=== PATIENT | male | born 1970 | race Caucasian/White ===

== ENCOUNTER 2019-03-11 02:17 | Inpatient (IN) | payer OTHER ==
[~2019-03-11] VITALS: Ht 188 cm; Wt 75.8 kg
[2019-03-11] MEDS ORDERED: MORPHINE SULFATE 4 MG/ML, 1ML ONE (02:50)
[2019-03-11] MEDS ORDERED: ONDANSETRON 2MG/ML, 2ML ONE (02:50)
[2019-03-11] MEDS ORDERED: ONDANSETRON 2MG/ML, 2ML IVPush ONE (03:00)
[2019-03-11] MEDS ORDERED: MORPHINE SULFATE 4 MG/ML, 1ML IVPush PRN (03:00)
[2019-03-11] MEDS ORDERED: SODIUM CHLORIDE FLUSH 10ML SYR IVF ONE (03:00)
[2019-03-11 03:05] LABS: MEAN CORPUSCULAR HGB CONC 32.3 g/dL (33.2-36.2); MEAN CORPUSCULAR VOLUME 89.9 fL (81-97); MEAN PLATELET VOLUME 8.1 fL (7.4-10.4); PLATELET COUNT 199 x10^3/uL (130-400); RED BLOOD COUNT 5.44 x10^6/uL (4.38-5.82); RED CELL DISTRIBUTION WIDTH 13.6 % (9.4-14.8)
--- NOTE | 2019-03-11 03:07 | NUR ---
pt here for chest pain that radiates to back. pt says he woke up with it approx 16 hrs ago. HR elevated. piv placed. pt medicated for pain. pt unable to urinate at this time. pt given urinal for ua. call light in reach
--- NOTE | 2019-03-11 03:09 | NUR ---
PT PLACED ON 3 L NC. RA SATS 83. PTS SATS AFTER O2 93
[2019-03-11 03:15] LABS: ALANINE AMINOTRANSFERASE 14 U/L (12-78); ALBUMIN 2.9 g/dL (3.4-5.0); ANION GAP 14 mmol/L (5-15); CALCIUM 7.8 mg/dL (8.5-10.1); CHLORIDE 99 mmol/L (98-107); CREATININE 2.66 mg/dL (0.7-1.3)
[2019-03-11 03:16] LABS: D-DIMER 1.55 ug/mlFEU (0.00-0.52); INTERNATIONAL NORMALIZED RATIO 1.22 (0.93-1.1); PROTHROMBIN TIME 12.7 Seconds (9.6-11.5)
[2019-03-11 03:17] LABS: ALKALINE PHOSPHATASE 69 U/L (45-117); BILIRUBIN,TOTAL 0.6 mg/dL (0.2-1.0); TOTAL PROTEIN 6.6 g/dL (6.4-8.2)
[2019-03-11] MEDS ORDERED: SODIUM CHLORIDE 0.9% 1,000ML IVBOLUS ONE ×2 (03:30→04:00)
[2019-03-11 03:36] LABS: MD YES
[2019-03-11 03:42] LABS: BANDS%(MANUAL) 19 % (0-7); LYMPH#(MANUAL) 1.51 x10^3/uL (1-3.4); LYMPHS% (MANUAL) 13 % (22-44); METAMYELOCYTES# (MANUAL) 1.28 x10^3/uL (0-0); METAMYELOCYTES% (MANUAL) 11 % (0-1); MONOS#(MANUAL) 0.12 x10^3/uL (0.3-2.7); MONOS% (MANUAL) 1 % (2-9); REACTIVE LYMPHS # (MANUAL) 0.46 x10^3/uL (0-0); REACTIVE LYMPHS % (MANUAL) 4 % (0-0); SEG#(MANUAL) 5.92 x10^3/uL (1.8-6.8); SEGS% (MANUAL) 51 % (42-75)
--- NOTE | 2019-03-11 03:44 | NUR ---
PT TO CT
[2019-03-11 03:52] LABS: OTHER CELLS # (MANUAL) 0.12 x10^3/uL (0-0); OTHER CELLS % (MANUAL) 1 % (0-0)
[2019-03-11 03:53] LABS: <PLATELET ESTIMATE> ADEQUATE; <RBC MORPHOLOGY> NORMAL
[2019-03-11 03:54] LABS: LARGE PLATELETS 1+
--- NOTE | 2019-03-11 03:56 | NUR ---
PT BACK FROM CT. 2ND L RUNNING. PT RESTING WITH NO NEEDS AT THIS TIME. CALL LIGHT IN REACH
[2019-03-11] MEDS ORDERED: OMNIPAQUE 350 MG/ML, 100ML BOTTLE ONE (03:57)
[2019-03-11] MEDS ORDERED: MEROPENEM 0.5 GM in SODIUM CHLORIDE 0.9% 100 ML IV ONE (04:30)
[2019-03-11] MEDS ORDERED: LINEZOLID PMX 600MG/300ML 300 ML IV ONE (04:30)
[2019-03-11] MEDS ORDERED: SODIUM CHLORIDE 0.9% 1,000 ML IV ONE (04:30)
[2019-03-11] MEDS ORDERED: MEROPENEM 500 MG in SODIUM CHLORIDE 0.9% 100 ML IV ONE (04:35)
--- NOTE | 2019-03-11 04:50 | NUR ---
PT SLEEPING. HR IMPROVED WITH FLUIDS. WILL START ABX AFTER BLOOD CULTURES ARE DRAWN. PT SLEEPING IN NAD. CALL LIGHT IN REACH
--- NOTE | 2019-03-11 05:10 | NUR ---
REPORT OF PT FROM OLIVA SUTTON AND ASSUMING CARE OF PT AT THIS TIME. LAB AT FOR BC X 2
--- NOTE | 2019-03-11 05:27 | NUR ---
PT MOVED FROM ROOM 3 TO TRAUMA 4. PT IS AWAKE AND CONSENTS TO PLACEMENT OF CENTRAL LINE. CENTRAL LINE CART MOVED INTO ROOM. 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 VSS AT THIS TIME. IV ABX AND FLUIDS STARTED IN TRAUMA BAY. HOSPITALIST AND DR. CARO AT BS WITH PT AT THIS TIME.
[2019-03-11] MEDS: SODIUM CHLORIDE 0.9% 1,000 ML IV SCH ×3 (05:37→20:58)
[2019-03-11] MEDS ORDERED: NOREPINEPHRINE 4 MG in SODIUM CHLORIDE 0.9% 246 ML IV PRN (05:37)
--- NOTE | 2019-03-11 05:49 | NUR ---
SUCCESSFUL INSERTION OF CENTRAL LINE. PT TOLERATED PROCEDURE WELL. VSS AND UPDATED IN EMR.
[2019-03-11] MEDS ORDERED: PHARMACY MAY ADJ FOR RENAL FX MC PRN ×2 (06:00)
[2019-03-11] MEDS ORDERED: VANCOMYCIN PER PHARMACY MC SCH (06:00)
[2019-03-11] MEDS ORDERED: SODIUM CHLORIDE 0.9%, 500ML IVBOLUS PRN (06:00)
[2019-03-11] MEDS ORDERED: ONDANSETRON 2MG/ML, 2ML IVPB PRN (06:00)
[2019-03-11] MEDS: HEPARIN 5,000 UNITS/ML, 1ML SQ SCH ×3 (06:00→23:13)
[2019-03-11] MEDS ORDERED: MORPHINE SULFATE 4 MG/ML, 1ML IV PRN ×2 (06:00→10:30)
[2019-03-11] MEDS ORDERED: ACETAMINOPHEN 650 MG/20.3 ML UDC PO PRN (06:00)
[2019-03-11] MEDS ORDERED: CEFTRIAXONE 2 GM in SODIUM CHLORIDE 0.9% 50 ML IVPB SCH (06:00)
--- NOTE | 2019-03-11 06:18 | NUR ---
PT ASLEEP IN [facility] AT THIS TIME; [place]. PT ON ALL MONITORS. MEDICATIONS GOING PER DEC.
[2019-03-11 06:33] LABS: CREATINE KINASE, TOTAL 57 U/L (39-308); TROPONIN I < 0.015 ng/mL (0.000-0.045)
[2019-03-11] MEDS ORDERED: HEPARIN 5,000 UNITS/ML, 1ML ONE (06:35)
[2019-03-11] MEDS ORDERED: CEFTRIAXONE PMX 2GM/50ML 50 ML ONE (06:36)
--- NOTE | 2019-03-11 06:48 | NUR ---
PER DR PROCTOR, PLACEMENT OF CVC CONFIRMED ON XRAY AND LINE OKAYED FOR USE. PT MEDICATED PER DEC.
--- NOTE | 2019-03-11 06:59 | NUR ---
I AM ASSUMING CARE OF THIS PT FROM [facility] (OLIVA) AT THIS TIME. SBAR REPORT WAS EXCHANGED AT THE BEDSIDE.
[2019-03-11] MEDS: AZITHROMYCIN 500 MG in SODIUM CHLORIDE 0.9% 250 ML IVPB SCH (07:23)
--- NOTE | 2019-03-11 07:42 | NUR ---
PT STOOD AT THE BEDSIDE W NO ASSIST AND URINATED. SAMPLE COLLECTED AND SENT TO THE LAB FOR ANALYSIS. IS AWARE OF SAMPLE, AND WE ARE NOT PLACING A LARA CATHETER AT THIS TIME.
--- NOTE | 2019-03-11 07:58 | NUR ---
[employer] MACHINE HELPER IS AT THE BEDSIDE FOR CONSULT. MYSELF, PT, AND MD ARE AGREEABLE TO DOWNGRADE ADMISSION TO [facility]. VS ARE STABLE AND WDL. I WILL CONTINUE TO MONITOR AND TREAT ORERED, WELL PRN WHILE AWAITING A ROOM ASSIGNMENT FOR ADMISSION.
[2019-03-11 07:59] LABS: MICROSCOPIC NOT IND
[2019-03-11 08:07] LABS: CULTURE INDICATED? NO
[2019-03-11] MEDS ORDERED: FAMOTIDINE 20 MG/2 ML IV SCH (09:00)
--- NOTE | 2019-03-11 09:02 | NUR ---
[facility]BAL SBAR EXCHANGED W OMER (RN) ON THE FLOOR FOR ADMISSION. WE WILL BEGIN TO PREPARE FOR TRANSPORT AT THIS TIME.
[2019-03-11] MEDS ORDERED: FAMOTIDINE 20 MG/2 ML ONE (09:07)
[2019-03-11] MEDS ORDERED: VANCOMYCIN 1,500 MG in SODIUM CHLORIDE 0.9% 250 ML IV SCH (10:30)
[2019-03-11] MEDS ORDERED: PHARMACOKINETIC MONITORING MC PRN ×2 (10:30→18:00)
[2019-03-11 13:17] LABS: AMPHETAMINE SCREEN, URINE Positive (Negative); BARBITURATE SCREEN, URINE Negative (Negative); BENZODIAZEPINE SCREEN, URINE Negative (Negative); CANNABINOID SCREEN, URINE Negative (Negative); CHLORIDE,URINE RANDOM 50 mmol/L; COCAINE SCREEN, URINE Negative (Negative); METHADONE SCREEN, URINE Negative (Negative); OPIATE SCREEN, URINE Positive (Negative); POTASSIUM,URINE RANDOM 79 mmol/L; SODIUM,URINE RANDOM 22 mmol/L
[2019-03-11 13:52] VITALS: BP 100/67
[2019-03-11] MEDS ORDERED: VANCOMYCIN PER PHARMACY MC PRN (18:00)
[2019-03-11] MEDS ORDERED: PHARMACOKINETIC CONSULTATION MC ONE (18:00)
[2019-03-11 19:40] VITALS: BP 107/67
[2019-03-11] MEDS ORDERED: VANCOMYCIN 1,500 MG in SODIUM CHLORIDE 0.9% 250 ML IV ONE (20:00)
[2019-03-12 00:14] VITALS: BP 95/59
[2019-03-12] MEDS: SODIUM CHLORIDE 0.9% 1,000 ML IV SCH ×3 (05:00→22:31)
[2019-03-12] MEDS: CEFTRIAXONE PMX 2GM/50ML 50 ML IVPB SCH (05:00)
[2019-03-12 05:04] LABS: MEAN CORPUSCULAR HEMOGLOBIN 29.1 pg (27.5-34.5); MEAN CORPUSCULAR HGB CONC 32.6 g/dL (33.2-36.2); MEAN CORPUSCULAR VOLUME 89.3 fL (81-97); PLATELET COUNT 189 x10^3/uL (130-400); RED BLOOD COUNT 4.23 x10^6/uL (4.38-5.82); RED CELL DISTRIBUTION WIDTH 13.5 % (9.4-14.8)
[2019-03-12 05:14] LABS: ALANINE AMINOTRANSFERASE 15 U/L (12-78); ANION GAP 4 mmol/L (5-15); CALCIUM 7.2 mg/dL (8.5-10.1); CHLORIDE 108 mmol/L (98-107)
[2019-03-12 05:17] LABS: ALKALINE PHOSPHATASE 62 U/L (45-117); BILIRUBIN,TOTAL 0.3 mg/dL (0.2-1.0); TOTAL PROTEIN 5.1 g/dL (6.4-8.2)
[2019-03-12 05:41] LABS: MD YES
[2019-03-12 05:46] LABS: <RBC MORPHOLOGY> NORMAL; BAND#(MANUAL) 2.99 x10^3/uL; BANDS%(MANUAL) 29 % (0-7); EOS#(MANUAL) 0.21 x10^3/uL (0.0-0.4); EOS% (MANUAL) 2 % (1-7); LYMPH#(MANUAL) 1.65 x10^3/uL (1-3.4); LYMPHS% (MANUAL) 16 % (22-44); MONOS% (MANUAL) 1 % (2-9); SEG#(MANUAL) 5.36 x10^3/uL (1.8-6.8); SEGS% (MANUAL) 52 % (42-75)
[2019-03-12 05:47] LABS: <PLATELET ESTIMATE> ADEQUATE
[2019-03-12 05:48] LABS: LARGE PLATELETS 1+
[2019-03-12] MEDS: HEPARIN 5,000 UNITS/ML, 1ML SQ SCH ×3 (06:30→22:31)
[2019-03-12] MEDS: AZITHROMYCIN 500 MG in SODIUM CHLORIDE 0.9% 250 ML IVPB SCH (06:31)
[2019-03-12 07:10] VITALS: BP 108/70
[2019-03-12] MEDS: VANCOMYCIN 1,500 MG in SODIUM CHLORIDE 0.9% 250 ML IV SCH ×2 (10:46→22:31)
[2019-03-12 13:01] VITALS: BP 131/86
[2019-03-12] MEDS: NICOTINE 7 MG/24 HR PATCH.TD24 TD SCH (16:15)
[2019-03-12 19:52] VITALS: BP 125/81
[2019-03-13 01:13] VITALS: BP 113/63
[2019-03-13 04:49] VITALS: BP 129/79
[2019-03-13] MEDS: CEFTRIAXONE PMX 2GM/50ML 50 ML IVPB SCH (05:04)
[2019-03-13] MEDS: SODIUM CHLORIDE 0.9% 1,000 ML IV SCH ×3 (05:04→23:06)
[2019-03-13] MEDS: HEPARIN 5,000 UNITS/ML, 1ML SQ SCH ×3 (05:04→23:06)
[2019-03-13] MEDS: AZITHROMYCIN 500 MG in SODIUM CHLORIDE 0.9% 250 ML IVPB SCH (06:16)
[2019-03-13 07:05] VITALS: BP 134/74
[2019-03-13] MEDS: VANCOMYCIN 1,500 MG in SODIUM CHLORIDE 0.9% 250 ML IV SCH (10:10)
[2019-03-13 11:24] VITALS: BP 123/78
[2019-03-13 12:26] LABS: MEAN CORPUSCULAR HEMOGLOBIN 28.4 pg (27.5-34.5); MEAN CORPUSCULAR HGB CONC 32.7 g/dL (33.2-36.2); MEAN CORPUSCULAR VOLUME 86.8 fL (81-97); MEAN PLATELET VOLUME 7.8 fL (7.4-10.4); PLATELET COUNT 219 x10^3/uL (130-400); RED BLOOD COUNT 4.41 x10^6/uL (4.38-5.82); RED CELL DISTRIBUTION WIDTH 13.8 % (9.4-14.8)
[2019-03-13 12:30] LABS: CALCIUM 7.8 mg/dL (8.5-10.1); CHLORIDE 111 mmol/L (98-107)
[2019-03-13 12:34] LABS: ANION GAP 5 mmol/L (5-15)
[2019-03-13 12:49] VITALS: BP 123/78
[2019-03-13 12:53] LABS: MD YES
[2019-03-13 12:56] LABS: BAND#(MANUAL) 2.28 x10^3/uL; BANDS%(MANUAL) 20 % (0-7); LYMPH#(MANUAL) 1.03 x10^3/uL (1-3.4); LYMPHS% (MANUAL) 9 % (22-44); MONOS#(MANUAL) 0.46 x10^3/uL (0.3-2.7); MONOS% (MANUAL) 4 % (2-9); REACTIVE LYMPHS # (MANUAL) 0.57 x10^3/uL (0-0); REACTIVE LYMPHS % (MANUAL) 5 % (0-0); SEG#(MANUAL) 7.07 x10^3/uL (1.8-6.8); SEGS% (MANUAL) 62 % (42-75)
[2019-03-13 12:57] LABS: <PLATELET ESTIMATE> ADEQUATE; <RBC MORPHOLOGY> NORMAL
[2019-03-13 12:58] LABS: LARGE PLATELETS 1+
[2019-03-13] MEDS: NICOTINE 7 MG/24 HR PATCH.TD24 TD SCH (17:06)
[2019-03-13 19:17] VITALS: BP 126/77
[2019-03-14 00:31] VITALS: BP 134/69
[2019-03-14] MEDS: CEFTRIAXONE PMX 2GM/50ML 50 ML IVPB SCH (05:20)
[2019-03-14] MEDS: SODIUM CHLORIDE 0.9% 1,000 ML IV SCH (05:21)
[2019-03-14] MEDS: AZITHROMYCIN 500 MG in SODIUM CHLORIDE 0.9% 250 ML IVPB SCH (06:26)
[2019-03-14] MEDS: HEPARIN 5,000 UNITS/ML, 1ML SQ SCH (06:32)
[2019-03-14 07:03] VITALS: BP 139/83
== END 2019-03-14 10:08 | disposition left against medical advice (07) | DRG 871 ==
LOC: ED 05:47 → EDIP 05:50 → 4WST 09:37
PROVIDERS: ADMIT Family Medicine; ATTEND Family Medicine
PROC: 02HV33Z Insertion of Infusion Device into Superior Vena Cava, Percutaneous Approach (ICD-10-PCS; principal; 2019-03-11)
PROC: B548ZZA Ultrasonography of Superior Vena Cava, Guidance (ICD-10-PCS; 2019-03-11)
DX: A41.9 Sepsis, unspecified organism (principal); J15.4 Pneumonia due to other streptococci; J96.01 Acute respiratory failure with hypoxia; R65.21 Severe sepsis with septic shock; E87.1 Hypo-osmolality and hyponatremia; N17.9 Acute kidney failure, unspecified; E88.09 Other disorders of plasma-protein metabolism, not elsewhere classified; F15.10 Other stimulant abuse, uncomplicated; F17.210 Nicotine dependence, cigarettes, uncomplicated; M54.5 Low back pain
CPT/HCPCS: 36415; 99291; J3490; 71045; 71275; 74175; 76770; 80048; 80053; 80307; 81003; 82436; 82550; 83605; 83690; 83735; 84100; 84133; 84300; 84484; 85025; 85379; 85610; 85730; 87040; 87077; 87081; 87181; 93005; 96365; 96366; 96375; G0378; J0456; J0696; J1644; J2020; J2185; J2405; J3370; Q9967; J2270; J7030; J7050